=== PATIENT | female | born 1945 | race Asian ===

== ENCOUNTER 2017-12-12 11:53 | Emergency (ER) | payer MEDICARE, OTHER, SELFPAY ==
[2017-12-12] VITALS (7 sets, daily range): BP systolic 109–192; BP diastolic 66–90; PULSE 78–107; RESP 15–21; TEMP 36.9; O2SAT 96–100
--- NOTE | 2017-12-12 12:05 | DI.RAD.S_ITS ---
PROCEDURE: XR CHEST 1V INDICATIONS: Chest pain TECHNIQUE: One view of the chest was acquired. COMPARISON: [facility], , CHEST 1 VIEW, 10/06/2016, 11:52. FINDINGS: Surgical changes and devices: There is surgical fusion in the lower cervical spine. Cholecystectomy clips are noted. Lungs and pleura: No pleural effusions or pneumothorax. Lungs are clear. Mediastinum: Mediastinal contours appear normal. Heart size is normal. Bones and chest wall: No suspicious bony lesions. Overlying soft tissues appear unremarkable. IMPRESSION: No acute cardiopulmonary disease. Dictated by: Tyrell Fletcher M.D. on 12/12/2017 at 12:26 Approved by: Tyrell Fletcher M.D. on 12/12/2017 at 12:27
--- NOTE | 2017-12-12 12:20 | ED_ITS ---
HPI - Chest Pain General Chief Complaint: Chest Pain Stated Complaint: PAIN/NUMB LEFT SHOULDER X7 DAYS, CHEST PAIN,SOB, Time Seen by Provider: 12/12/17 12:05 Source: patient Mode of arrival: ambulatory Limitations: no limitations History of Present Illness HPI narrative: 72-year-old female with a history of CVA and MD x2 presents with 9 days of left shoulder pain. There is no history of injury. She was seen at [facility] about 1 week ago and had a negative cardiac workup. She was given tramadol to help with what appeared to be musculoskeletal pain and advised to follow up. She has been unable to get in with her primary care provider due to the new computer system. She complains of increasing pain in the right shoulder, worse with movement, and improved by sitting leaning to the right side. She also notes that the arm appears to be somewhat weaker than usual. Her previous stroke affected the right side of her body but has nearly recovered. She denies fevers or chills. She does admit to diaphoresis/clammy skin, but denies shortness of breath. She admits to some mild nausea, which is worse when she takes the tramadol. Because of this and the vomiting she has experienced she does not take tramadol anymore. She states this pain is more than she has ever had. Quality: sharp Pain radiation: LUE Exacerbating factors: movement Related Data Home Medications Medication Instructions Recorded Confirmed Cinnamon 1 cap PO QDAY 12/12/17 12/12/17 albuterol sulfate [Proventil HFA] 2 puff INH Q4HP PRN 12/12/17 12/12/17 alprazolam 0.25 mg PO TID 12/12/17 12/12/17 alprazolam 0.5 mg PO QHS 12/12/17 12/12/17 metformin 1,000 mg PO QPM 12/12/17 12/12/17 metformin 1,500 mg PO QAM 12/12/17 12/12/17 Previous Rx's Medication Instructions Recorded metoprolol tartrate 50 mg PO BID #180 tab 10/26/16 cholecalciferol (vitamin D3) 10,000 tab PO QWEEK #8 tab 11/10/16 cyanocobalamin (vitamin B-12) 2,000 mcg PO Q DAY PRN PRN #180 tab 11/14/16 diclofenac sodium [Voltaren] 3 abi TOPICAL TID #500 gm 11/14/16 omeprazole 40 mg PO BID #180 tab 02/12/17 amitriptyline 75 mg PO HS #90 tab 02/16/17 lisinopril 2.5 mg PO QDAY #90 tab 07/18/17 acetaminophen 650 mg PO Q8HP PRN #100 tab 08/21/17 clopidogrel [Plavix] 75 mg PO QDAY #90 tab 10/01/17 atorvastatin [Lipitor] 80 mg PO HS #90 tab 10/15/17 zolpidem [Ambien] 10 mg PO HS #90 tab 11/05/17 cyclobenzaprine 5 mg PO Q8H PRN #20 tab 12/12/17 ondansetron [Zofran ODT] 4 mg PO Q6H PRN #14 tab 12/12/17 Allergies Allergy/AdvReac Type Severity Reaction Status Date / Time hydrocodone [From VICODIN] Allergy Unknown Verified 12/12/17 13:43 codeine AdvReac Mild GI UPSET Verified 12/12/17 13:43 rifampin AdvReac Mild SICK, N/A Verified 12/12/17 13:42 Review of Systems Review of Systems All systems reviewed & are unremarkable except as noted in HPI and below Constitutional Denies chills, Denies fatigue, Denies fever(s), Denies headache(s), Denies lethargy and Reports weakness Eyes Denies change in vision, Denies eye discharge, Denies irritation and Denies loss of vision ENT Ears, Nose, Mouth, and Throat: Denies change in voice, Denies dizziness, Denies headache(s), Denies neck pain, Denies sore throat and Denies throat swelling Cardiovascular Reports as per HPI, Reports chest pain ( pain radiates to the chest intermittently, but not frequently), Reports diaphoresis, Denies syncope and Denies dyspnea Respiratory Reports system reviewed and no additional complaints, except as docu, Denies dyspnea and Denies wheezing Gastrointestinal Gastrointestinal: Reports system reviewed and no additional complaints, except as docu Genitourinary Reports system reviewed and no additional complaints, except as docu Musculoskeletal Reports as per HPI, Denies back pain, Denies joint swelling, Reports muscle weakness ( due to pain), Denies neck pain, Denies numbness and Denies tingling Integumentary/Breasts Reports system reviewed and no additional complaints, except as docu Neurologic Reports system reviewed and no additional complaints, except as docu, Denies confusion, Denies dizziness, Denies syncope, Denies headache(s), Denies loss of vision, Denies numbness, Denies sensory deficit, Denies tingling, Denies tremor( s) and Reports weakness Psychiatric Denies confusion Endocrine Denies fatigue and Denies flushing Hematologic/Lymphatic Denies easy bruising Allergic/Immunologic Denies urticaria, Denies throat swelling and Denies wheezing Exam Const General: cooperative, well developed, in distress ( mild) and other ( leaning to the right side) Nutritional Appearance: well nourished Orientation: alert, awake, oriented x3 and not confused [facility] Head: normocephalic and atraumatic Ears: external ears normal and TM's normal bilaterally Nose: external nose normal and No nasal discharge Face and sinus: sinuses nontender, face symmetric, no sinus tenderness and No dry mucous membranes Mouth: oral mucosae normal and moist mucous membranes Teeth and gingiva: dentition normal Throat: tonsils normal and uvula midline Eyes General: appearance normal, both eyes and all related structures Eyelids: eyelids normal Conjunctivae: conjunctivae normal Sclera: sclerae normal Pupils: PERRL EOM: EOM intact bilaterally Neck Neck: normal visual inspection, trachea midline, No lymphadenopathy, No midline deformity and No JVD Lymphatic: No lymphedema Other: negative Spurling's Chest Chest: normal inspection of the chest Resp Effort & Inspection: normal respiratory effort, able to speak in complete sentences, no respiratory distress and no use of accessory muscles Auscultation: clear to auscultation bilaterally, no rales, no rhonchi and no wheezes Cardio Rate: tachycardic Rhythm: regular rhythm Heart Sounds: no click, no gallops, no murmurs and no rubs Pulses: normal peripheral pulses GI Inspection: non-distended Palpation: soft, no hepatosplenomegaly, No guarding, No pulsatile mass and No tender Auscultation: normal bowel sounds Back/Spine/Pelvis Back: No CVA tenderness Cervical Spine: cervical ROM normal and No pain with cervical ROM Thoracic/Lumbar Spine: thoracic and lumbar spine normal to inspection Skin General: no rashes or lesions noted, No jaundice and No petechiae Neuro General: alert, oriented x3, gait normal and no focal motor deficits Cranial Nerves: CN's II-XI intact bilaterally Speech: speech normal Motor: strength 5/5 throughout Sensory Exam: no sensory deficits noted Extrem General: full ROM ( full but painful range of motion of left shoulder), no clubbing, cyanosis or edema and no pedal edema Left upper extremity: no joint enlargement and elbow/forearm Details: no unusual warmth, no ecchymosis and no crepitus Psych Appearance: well kempt Mental Status: mental status grossly normal Attitude: cooperative Thought Content: normal and suicidality Judgment: judgment good MDM - Chest Pain MDM Narrative Medical decision making narrative: EKG performed at 11:59 a.m. shows sinus rhythm with a rate of 95. No ST elevation or depression. No ischemia. 72-year-old female with a history of stroke and MD presents with left shoulder pain for 9 days. she has a significant intolerance to pain medications and the tramadol she was discharged with from previous ER visit cause significant nausea and vomiting, although it does relieve her pain. My differential for her shoulder pain included MRI, radiculopathy, stroke as she did mention some weakness, muscle strain, fracture, pneumothorax, among other things. Her EKG is completely normal as is her troponin after 9 days of constant pain. Her neuro exam is normal as well other than pain. I do not appreciate any new weakness on this side. X-ray of the chest and left shoulder show no acute abnormalities. Although her pain improved with Dilaudid she has developed nausea again which improved with Zofran and Reglan. I a.m. also consider rheumatoid as a potential cause but inflammatory/infectious markers were negative.As the tramadol helped her previously I gave her a prescription of Zofran and also muscle relaxer. her exam is most consistent with rhomboid muscle strain as there is focal tightness and tenseness of this muscle group isolated to the left side only. It is worse with motion and better with heat. I advised follow-up with her PCP later this week and consideration of physical therapy to help with her pain. Patient has a friend who is caring for her and helping her and she will stay with her and help her with follow-up. Return precautions given. Lab Data Result diagrams: 12/12/17 12:11 12/12/17 12:11 Lab Results 12/12/17 12/12/17 12/12/17 Range/Units 11:53 12:11 12:11 WBC 11.8 H (4.5-11.0) X10^3/uL RBC 5.01 (4.0-5.2) X10^6/uL Hgb 13.8 (12.0-16.0) g/dL Hct 41.5 (36-46) % MCV 82.9 (80-100) fL MCH 27.5 (26-34) PG MCHC 33.1 (30-36) % RDW 17.3 H (11.6-14.8) % Plt Count 375 (150-400) X10^3/uL Neut % (Auto) 67.6 (50-75) % Lymph % (Auto) 19.5 L (25-40) % Aurora % (Auto) 8.6 (3-14) % Eos % (Auto) 3.7 (2-4) % Baso % (Auto) 0.6 (0-2) % Neut # (Auto) 8000 H (5619-0640) /uL ESR 14 (0-20) MM/HR PT 10.0 L (10.1-12.7) SECONDS INR 0.9 (0.9-1.3) APTT 33 (26.4-36.2) SECONDS Sodium (137-145) mmol/L Potassium (3.4-5.1) mmol/L Chloride (98-107) mmol/L Carbon Dioxide (22-32) mmol/L BUN (7-17) mg/dL Creatinine (0.52-1.04) mg/dL Estimated GFR (>60) mL/min BUN/Creatinine Ratio (6-22) Glucose (80-110) mg/dL Calcium (8.4-10.2) mg/dL Total Bilirubin (0.2-1.3) mg/dL AST (14-36) IU/L ALT (9-52) IU/L Alkaline Phosphatase (38-126) U/L Total Creatine Kinase (30-135) U/L Troponin I (0.01-0.034) ng/mL B-Natriuretic Peptide < 100.0 (<100) Total Protein (6.3-8.2) g/dL Albumin (3.5-5.0) g/dL Globulin (1.7-4.1) g/dL Albumin/Globulin Ratio (1.0-2.8) Lipase (23-300) U/L 12/12/17 Range/Units 12:11 WBC (4.5-11.0) X10^3/uL RBC (4.0-5.2) X10^6/uL Hgb (12.0-16.0) g/dL Hct (36-46) % MCV (80-100) fL MCH (26-34) PG MCHC (30-36) % RDW (11.6-14.8) % Plt Count (150-400) X10^3/uL Neut % (Auto) (50-75) % Lymph % (Auto) (25-40) % Aurora % (Auto) (3-14) % Eos % (Auto) (2-4) % Baso % (Auto) (0-2) % Neut # (Auto) (1000-9433) /uL ESR (0-20) MM/HR PT (10.1-12.7) SECONDS INR (0.9-1.3) APTT (26.4-36.2) SECONDS Sodium 135 L (137-145) mmol/L Potassium 4.9 (3.4-5.1) mmol/L Chloride 96.0 L (98-107) mmol/L Carbon Dioxide 22.0 (22-32) mmol/L BUN 17.0 (7-17) mg/dL Creatinine 0.80 (0.52-1.04) mg/dL Estimated GFR > 60.0 (>60) mL/min BUN/Creatinine Ratio 21.3 (6-22) Glucose 172 H (80-110) mg/dL Calcium 9.2 (8.4-10.2) mg/dL Total Bilirubin 0.6 (0.2-1.3) mg/dL AST 27 (14-36) IU/L ALT 24 (9-52) IU/L Alkaline Phosphatase 91 (38-126) U/L Total Creatine Kinase 38 (30-135) U/L Troponin I < 0.012 (0.01-0.034) ng/mL B-Natriuretic Peptide (<100) Total Protein 7.9 (6.3-8.2) g/dL Albumin 4.5 (3.5-5.0) g/dL Globulin 3.4 (1.7-4.1) g/dL Albumin/Globulin Ratio 1.3 (1.0-2.8) Lipase 108 (23-300) U/L Imaging Data Chest x-ray: Radiologist's impression: PROCEDURE: XR CHEST 1V INDICATIONS: Chest pain TECHNIQUE: One view of the chest was acquired. COMPARISON: [facility], CHEST 1 VIEW, 10/06/2016, 11:52. FINDINGS: Surgical changes and devices: There is surgical fusion in the lower cervical spine. Cholecystectomy clips are noted. Lungs and pleura: No pleural effusions or pneumothorax. Lungs are clear. Mediastinum: Mediastinal contours appear normal. Heart size is normal. Bones and chest wall: No suspicious bony lesions. Overlying soft tissues appear unremarkable. IMPRESSION: No acute cardiopulmonary disease. Dictated by: Tyrell Fletcher M.D. on 12/12/2017 at 12:26 Approved by: Tyrell Fletcher M.D. on 12/12/2017 at 12:27 shoulder: Radiologist's impression: PROCEDURE: XR SHOULDER LT MIN 2V INDICATIONS: left shoulder pain TECHNIQUE: 3 views of the shoulder were acquired. COMPARISON: None. FINDINGS: Bones: No fractures or dislocations. No suspicious bony lesions. Visualized ribs appear intact. Mild degenerative changes of the glenohumeral and acromioclavicular joints are present. There are post surgical changes of the lower cervical spine noted, likely present at the C7-T1 junction. This is not well evaluated on this exam. Soft tissues: No suspicious soft tissue calcifications. IMPRESSION: Mild degenerative changes of the left shoulder joint. No fractures. Dictated by: Juan Manuel Flores M.D. on 12/12/2017 at 12:12 Approved by: Juan Manuel Flores M.D. on 12/12/2017 at 12:13 Discharge Plan Departure Patient Disposition: Home, Self-Care Clinical Impression: Rhomboid muscle strain, Nausea, Acute pain of left shoulder Instructions: DI for Muscle Strain, DI for Shoulder Pain Activity Restrictions/Additional Instructions: Thank you for trusting this with your care today. There were no dangerous causes for your shoulder pain found after thorough evaluation. I see no evidence of stroke, heart attack, infection, fracture, rheumatoid flare, pinched nerve in the neck or other dangerous findings. It appears that your rhomboid muscle is the source of your pain. Please continue to use your tramadol as needed for pain, firstt taking a Zofran tablet to prevent nausea. You can also take cyclobenzaprine for muscle spasm. Please be aware this medication can cause sleepiness. Follow up with your primary care provider within 1 week for re-evaluation. Return to ER for new or worsening symptoms. Prescriptions: New ondansetron [Zofran ODT] 4 mg tablet,disintegrating 4 mg PO Q6H PRN (Reason: nausea and vomiting) Qty: 14 RF: 0 cyclobenzaprine 5 mg tablet 5 mg PO Q8H PRN (Reason: muscle spasm) Qty: 20 RF: 0 No Action metoprolol tartrate 50 MG tablet 50 mg PO BID Qty: 180 RF: 3 cholecalciferol (vitamin D3) 10,000 UNIT tablet 10,000 tab PO QWEEK Qty: 8 RF: 0 cyanocobalamin (vitamin B-12) 1,000 MCG tablet extended release 2,000 mcg PO Q DAY PRN PRNQty: 180 RF: 3 diclofenac sodium [Voltaren] 1 % gel 3 abi Topical TID Qty: 500 RF: 2 omeprazole 20 MG tablet,delayed release (DR/EC) 40 mg PO BID Qty: 180 RF: 11 amitriptyline 75 MG tablet 75 mg PO HS Qty: 90 RF: 3 lisinopril 2.5 MG tablet 2.5 mg PO QDAY Qty: 90 RF: 3 acetaminophen 650 MG tablet extended release 650 mg PO Q8HP PRNQty: 100 RF: 5 clopidogrel [Plavix] 75 MG tablet 75 mg PO QDAY Qty: 90 RF: 1 atorvastatin [Lipitor] 80 MG tablet 80 mg PO HS Qty: 90 RF: 3 zolpidem [Ambien] 10 MG tablet 10 mg PO HS Qty: 90 RF: 0 albuterol sulfate [Proventil HFA] 90 MCG/PUFF HFA aerosol inhaler 2 puff INH Q4HP PRN (Reason: Shortness Of Breath) RF: 0 metformin 500 mg Tablet 1,000 mg PO QPM RF: 0 metformin 500 mg Tablet 1,500 mg PO QAM RF: 0 alprazolam 0.25 MG tablet 0.25 mg PO TID RF: 0 alprazolam 0.25 mg Tablet 0.5 mg PO QHS RF: 0 Cinnamon capsule 1 cap PO QDAY RF: 0 Referrals: José Miguel Nunez MD [Primary Care Provider] -
[2017-12-12 12:28] LABS: Add Manual Diff / Slide Review NO; Basophils Percent Auto 0.6 % (0-2); Eosinophils Percent Auto 3.7 % (2-4); Hematocrit 41.5 % (36-46); Hemoglobin 13.8 g/dL (12.0-16.0); Lymphocytes Percent Auto 19.5 % (25-40); Mean Corpuscular HGB Conc 33.1 % (30-36); Mean Corpuscular Hemoglobin 27.5 PG (26-34); Mean Corpuscular Volume 82.9 fL (80-100); Monocytes Percent Auto 8.6 % (3-14); Neutrophils Absolute Auto 8000 /uL (3000-5900); Neutrophils Percent Auto 67.6 % (50-75); Platelet Count 375 X10^3/uL (150-400); Red Blood Cell Count 5.01 X10^6/uL (4.0-5.2); Red Cell Distribution Width 17.3 % (11.6-14.8); White Blood Cell Count 11.8 X10^3/uL (4.5-11.0)
[2017-12-12 12:30] LABS: INR 0.9 (0.9-1.3)
[2017-12-12 12:32] LABS: PTT Partial Thromboplastin Tim 33 SECONDS (26.4-36.2)
[2017-12-12 12:36] LABS: Alanine Aminotransferase 24 IU/L (9-52); Albumin 4.5 g/dL (3.5-5.0); Albumin Globulin Ratio 1.3 (1.0-2.8); Alkaline Phosphatase 91 U/L (38-126); Aspartate Aminotransferase 27 IU/L (14-36); BUN Creatinine Ratio 21.3 (6-22); Bilirubin Total 0.6 mg/dL (0.2-1.3); Calcium 9.2 mg/dL (8.4-10.2); Creatine Kinase 38 U/L (30-135); Estimated Glomerular Filt Rate > 60.0 mL/min (>60); Globulin 3.4 g/dL (1.7-4.1); Glucose 172 mg/dL (80-110); Lipase 108 U/L (23-300); Potassium 4.9 mmol/L (3.4-5.1); Sodium 135 mmol/L (137-145); Total Protein 7.9 g/dL (6.3-8.2)
[2017-12-12 12:38] LABS: HEMOLYSIS 80 (0-50)
--- NOTE | 2017-12-12 12:44 | DI.RAD.S_ITS ---
PROCEDURE: XR SHOULDER LT MIN 2V INDICATIONS: left shoulder pain TECHNIQUE: 3 views of the shoulder were acquired. COMPARISON: None. FINDINGS: Bones: No fractures or dislocations. No suspicious bony lesions. Visualized ribs appear intact. Mild degenerative changes of the glenohumeral and acromioclavicular joints are present. There are post surgical changes of the lower cervical spine noted, likely present at the C7-T1 junction. This is not well evaluated on this exam. Soft tissues: No suspicious soft tissue calcifications. IMPRESSION: Mild degenerative changes of the left shoulder joint. No fractures. Dictated by: Juan Manuel Flores M.D. on 12/12/2017 at 12:12 Approved by: Juan Manuel Flores M.D. on 12/12/2017 at 12:13
[2017-12-12 12:48] LABS: Troponin I < 0.012 ng/mL (0.01-0.034)
[2017-12-12 13:25] LABS: Erythrocyte Sedimentation Rate 14 MM/HR (0-20)
[2017-12-12 13:44] LABS: B Type Natriuretic Peptide < 100.0 (<100)
[2017-12-12] MEDS: HYDROMORPHONE 0.5 MG SYRINGE IV (13:51)
[2017-12-12] MEDS: ONDANSETRON 4 MG/2 ML VIAL IV (13:52)
--- NOTE | 2017-12-12 14:43 | PC.NURSE ---
Patient reports feeling flushed, nauseated and a little dizzy after the dilaudid. Not actively vomiting. Tolerating small sips of water.
[2017-12-12] MEDS: METOCLOPRAMIDE 10 MG/2 ML INJ IV (15:50)
[2017-12-12] MEDS: LABETALOL 20 MG/4 ML SYRINGE 5 MG IV (16:21)
[2017-12-12] MEDS: ONDANSETRON 4 MG/2 ML INJ IV (16:34)
[2017-12-13 01:37] LABS: C-Reactive Protein Quant < 0.5 mg/dL (<1.0)
== END 2017-12-12 16:52 | disposition home or self-care (01) ==
PROVIDERS: Emergency Medicine; Emergency Provider Emergency Medicine; Family Provider Family Medicine; PCP Family Medicine
DX: S29.019A Strain of muscle and tendon of unspecified wall of thorax, initial encounter (principal); R11.0 Nausea; M25.512 Pain in left shoulder; R07.89 Other chest pain
CPT/HCPCS: 36000; 36591; 71045; 73030; 80053; 82550; 82553; 83690; 83880; 84484; 85025; 85610; 85651; 85730; 86140; 93005; 93010; 93041; 96374; 96375; 96376; 99283; 99285; J1170; J2405; J2765

== ENCOUNTER → 2017-12-27 11:00 | Outpatient (CLI) | payer MEDICARE, OTHER, SELFPAY ==
[2017-12-27 12:25] LABS: Hemoglobin A1C% w Est Avg Glu 7.3 % (4.0-6.0)
[2017-12-27 12:37] LABS: BUN Creatinine Ratio 18.8 (6-22); Calcium 9.4 mg/dL (8.4-10.2); Estimated Glomerular Filt Rate > 60.0 mL/min (>60); Glucose 203 mg/dL (80-110); HEMOLYSIS < 15 (0-50); Potassium 5.3 mmol/L (3.4-5.1); Sodium 136 mmol/L (137-145)
[2017-12-27 12:50] LABS: Free T4, Direct Thyroxine 0.93 ng/dL (0.78-2.19)
[2017-12-27 13:04] LABS: Thyroid Stimulating Hormone 0.07 uIU/mL (0.47-4.68)
== END ==
PROVIDERS: PCP Family Medicine; Visit Provider Family Medicine
DX: E11.9 Type 2 diabetes mellitus without complications (principal); E05.90 Thyrotoxicosis, unspecified without thyrotoxic crisis or storm
CPT/HCPCS: 36415; 80048; 83036; 84439; 84443

== ENCOUNTER → 2017-12-31 07:17 | Outpatient (CLI) | payer MEDICARE, OTHER, SELFPAY ==
--- NOTE | 2017-12-31 07:18 | DI.MRI.S_ITS ---
PROCEDURE: MR CERVICAL SPINE WO CON INDICATIONS: c-spine impingment with left radiculopathy TECHNIQUE: Noncontrast sagittal T1 spin echo and T2 fast spin echo, sagittal STIR, foraminal oblique sagittal T2 fast spin echo, and axial gradient echo or T2 fast spin echo through the cervical spine. COMPARISON: [facility], , C-SPINE WITHOUT CONTRAST, 11/01/2009, 12:07. FINDINGS: Image quality: Excellent. Alignment and Curvature: Interval since the prior exam, there has been anterior fusion at C6-7. There is trace anterolisthesis of C3 on C4, C7 on T1, trace retrolisthesis of C4 on C5 and C5 on C6. Bone Marrow: Marrow demonstrates normal overall signal. Spinal Cord: Visualized spinal cord has normal size and signal. No cerebellar tonsillar herniation. Paraspinous Soft Tissues: No paravertebral masses. Prevertebral soft tissues are normal in thickness. Discs: Moderate multilevel disc desiccation is present most prominent in the mid cervical spine. C2-C3: No disc bulge, spinal stenosis or foraminal narrowing. No interval change. C3-C4: Mild disc bulge with mild flattening of the anterior thecal sac. No foraminal narrowing. No interval change. C4-C5: Mild disc bulge with moderate spinal stenosis, progressive compared to prior exam. There is moderate bilateral foraminal narrowing with uncovertebral hypertrophy as well as a right facet joint cyst, progressive compared to prior exam. C5-C6: Disc bulge with moderate spinal stenosis as well as severe right and moderate left foraminal narrowing and uncovertebral hypertrophy. Interval progression is noted. C6-C7: Postsurgical changes are present. There is no spinal stenosis. No foraminal narrowing. Spinal stenosis is improved compared to prior exam. C7-T1: Postsurgical changes are present. There is what appears to be a prominent disc extrusion in the left posterior paracentral position at the level of the lateral recess/proximal left neural foramina. There is complete compromise of the left lateral recess and proximal foramina. There is an overall appearance of mild spinal stenosis. IMPRESSION: 1. Mild progression of degenerative changes as above. 2. Prominent left lateral recess/proximal left neural foramina extrusion at C6-7 with compromise of the recess and foramina as above. Dictated by: Annalisa Villanueva M.D. on 12/31/2017 at 9:24 Approved by: Annalisa Villanueva M.D. on 12/31/2017 at 9:56
== END ==
PROVIDERS: Family Provider Family Medicine; PCP Family Medicine; Visit Provider Family Medicine
DX: M50.30 Other cervical disc degeneration, unspecified cervical region (principal); M50.20 Other cervical disc displacement, unspecified cervical region
CPT/HCPCS: 72141

== ENCOUNTER → 2018-03-01 09:42 | Outpatient (CLI) | payer MEDICARE, OTHER, SELFPAY ==
[2018-03-01 10:51] LABS: Hemoglobin A1C% w Est Avg Glu 7.9 % (4.0-6.0)
[2018-03-01 11:02] LABS: BUN Creatinine Ratio 17.5 (6-22); Blood Urea Nitrogen 14 mg/dL (7-17); Calcium 9.3 mg/dL (8.4-10.2); Carbon Dioxide 26 mmol/L (22-32); Chloride 97 mmol/L (98-107); Estimated Glomerular Filt Rate > 60.0 mL/min (>60); Glucose 161 mg/dL (80-110); HEMOLYSIS 36 (0-50); Potassium 4.3 mmol/L (3.4-5.1); Sodium 135 mmol/L (137-145)
[2018-03-01 11:32] LABS: Thyroid Stimulating Hormone < 0.02 uIU/mL (0.47-4.68)
== END ==
PROVIDERS: Family Provider Family Medicine; PCP Family Medicine; Visit Provider Family Medicine
DX: E05.90 Thyrotoxicosis, unspecified without thyrotoxic crisis or storm (principal)
CPT/HCPCS: 36415; 80048; 83036; 84443

== ENCOUNTER 2018-03-27 09:12 | Outpatient (CLI) | payer MEDICARE, OTHER, SELFPAY ==
[2018-03-27] VITALS (11 sets, daily range): BP systolic 135–174; BP diastolic 59–88; PULSE 75–84; RESP 14–20; TEMP 36.3; O2SAT 94–100
--- NOTE | 2018-03-27 09:14 | DI.RAD.S_ITS ---
PROCEDURE: PAIN C/T INTERLAMINAR INJECT INDICATIONS: C7-T1 HNP with left upper extremity radicular FINDINGS: Fluoroscopic spot filming was performed to verify placement of spinal needles at the dorsal aspect of the low cervical spine area, approximately C7-T1 level(s), as labeled on the films. Appropriate location(s) of the needle tip(s) was confirmed by injection of iodinated contrast. IMPRESSION: Successful dorsal low cervical spine region near the C7-T1 level localization for interlaminar epidural injection. Dictated by: Jericho Hughes M.D. on 03/27/2018 at 13:34 Approved by: Jericho Hughes M.D. on 03/27/2018 at 13:34
--- NOTE | 2018-03-27 10:22 | PM.PROC.1 ---
Procedures Date/Time Date of procedure: 03/27/18 Time of procedure: 10:23 General Procedure description: PREOP DIAGNOSIS 1. CERVICAL STENOSIS, 2. CERVICAL HNP WITH UPPER EXTREMITY RADICULAR FEATURES, POST OP DIAGNOSIS 1. CERVICAL STENOSIS, 2. CERVICAL HNP WITH UPPER EXTREMITY RADICULAR FEATURES, PROCEDURES 1. FLUORSCOPICALLY GUIDED CONTRAST CONTROLLED INTERLAMINAR EPIDURAL STEROID INJECTION - C6/7 TL LEIGHA PHYSICIAN: Jose Rizo, DO INDICATIONS Erica is referred by Dr. Nunez for treatment of Cervical HNP with Upper Extremity Paresthesias. FINDINGS Cervical Stenosis due to disc deterioration and nerve root irritation and nerve root irritation DESCRIPTION OF PROCEDURE Fluoroscopically guided, contrast-controlled C6/7 translaminar epidural steroid injection with conscious sedation. Following denial of allergy and review of potential side effects and complications, including, but not necessarily limited to, infection, allergic reaction, local tissue breakdown, temporary as well as permanent nerve injury, stroke, paralysis, and possible , the patient indicated that patient understood and agreed to proceed. An informed consent document was signed by the patient, witnessed by a nurse, and placed in the patient's chart. Additionally, other treatment options including modalities, medications, and physical therapy were reviewed with the patient. After review of previous anaesthesic history and IV conscious sedation the patient was deemed safe to proceed with todays procedure with IV conscious sedation as ASA class II designation. Safety time-out was performed to confirm patient ID, procedure to be performed and site of procedure. IV sedation was accomplished with a combination of 3mg of Versed administered by the RN after DO order, titrated to patient comfort during the course of the procedure while the patient remained responsive to all verbal commands. In the prone position, following sterile prep and drape of the cervical region, the C6/7 translaminar space was identified fluoroscopically. The skin was anesthetized via a 25-gauge 1.5-inch needle with 1% lidocaine solution. At this point, a 25-gauge, 2.5-inch short bevel spinal needle was atraumatically introduced and advanced under fluoroscopic guidance into epidural space at the C6/7 translaminar space. Depth was confirmed on lateral view. Radiological data, including multiple fluoroscopic views of the cervical spine, reveal a spinal needle at the C6/7 translaminar space. Lateral views then show placement of the needle in the epidural space. Subsequent views show contrast material flowing superiorly and inferiorly in the epidural space. DSA fluoroscopy with live contrast injection, once again, confirmed no vascular or intrathecal uptake. At this point, using loss of resistance technique with saline and air, the epidural space was entered. Following negative aspiration, injection of approximately 1.5 cc of [id number]-[id number] with live fluoroscopy in the AP view confirmed epidural flow in the epidural space without vascular or intrathecal uptake observed. Subsequently, a test dose of 1 cc of 1% lidocaine solution was injected and patient was observed for two minutes without signs or symptoms of complications, including abdominal pain, shortness of breath, bilateral upper or lower extremity weakness, nausea and vomiting, prior to steroid injection. At this point, 3 cc or 30 mg of dexamethasone was then injected without incident. The patient tolerated the procedure well without signs or symptoms of complications prior to being transferred to the recovery area for further monitoring, The patient was then transferred to the recovery area where they were observed for an appropriate period of time after the injection. The patient reported a VAS score of 6 prior to the procedure and a post-procedure VAS of 0. Total Fluoroscopy Time: 37.0 seconds Total Conscious Time: 24min POST OP INSTRUCTIONS The patient was provided a Pain Log to continue to record their response to the target-specific procedure prior to follow-up visit with the referring provider. Additionally, specific post-injection care instructions and a contact number to our office were provided if concerns arise regarding possible complications associated with the procedure are suspected. Jose Rizo, Complications: none
[2018-03-27] MEDS: LIDOCAINE 1% 20 ML INJ 5 ML INJ (10:50)
[2018-03-27] MEDS: IOPAMIDOL 15 ML VIAL 3 ML INJ (10:50)
[2018-03-27] MEDS: MIDAZOLAM 5 MG/5 ML VIAL IV (10:51)
[2018-03-27] MEDS: DEXAMETHASONE 10 MG/ML VIAL 30 MG INJ (10:51)
--- NOTE | 2018-03-27 17:38 | PC.NURSE ---
Called to remind pt she left her pain log here and She reports she is doing great. Her symptoms are weakness so she will keep track of her strength and let Dr. Rizo know how she did on her follow up.
== END 2018-03-27 11:31 ==
LOC: RAD 09:13
PROVIDERS: Family Provider Family Medicine; PCP Family Medicine; Visit Provider Physical Medicine & Rehabilitation
DX: M48.02 Spinal stenosis, cervical region (principal); M54.12 Radiculopathy, cervical region
CPT/HCPCS: 62321; 99152; J1100; J2250

== ENCOUNTER 2018-04-30 10:21 | Outpatient (CLI) | payer MEDICARE, OTHER, SELFPAY ==
[2018-04-30] VITALS (13 sets, daily range): BP systolic 105–174; BP diastolic 67–99; PULSE 74–84; RESP 16–20; TEMP 36.1; O2SAT 95–98
--- NOTE | 2018-04-30 10:23 | DI.RAD.S_ITS ---
PROCEDURE: PAIN C/T INTERLAMINAR INJECT INDICATIONS: RADICULOPATHY FINDINGS: Fluoroscopic spot filming was performed to verify placement of spinal needles at the posterior C7-T1 midline level(s), as labeled on the films. Appropriate location(s) of the needle tip(s) was confirmed by injection of iodinated contrast. IMPRESSION: Successful translaminar epidural needle tip localization for steroid injection. Dictated by: Jericho Hughes M.D. on 04/30/2018 at 16:16 Approved by: Jericho Hughes M.D. on 04/30/2018 at 16:16
[2018-04-30] MEDS: MIDAZOLAM 5 MG/5 ML VIAL IV (11:23)
[2018-04-30] MEDS: LIDOCAINE 1% 20 ML INJ 5 ML INJ (11:25)
[2018-04-30] MEDS: DEXAMETHASONE 10 MG/ML VIAL 30 MG INJ (11:25)
[2018-04-30] MEDS: IOPAMIDOL 15 ML VIAL 3 ML INJ (11:25)
--- NOTE | 2018-04-30 11:33 | PM.PROC.1 ---
Procedures Date/Time Date of procedure: 04/30/18 Time of procedure: 11:33 General Procedure description: PREOP DIAGNOSIS 1. CERVICAL STENOSIS, 2. CERVICAL HNP WITH UPPER EXTREMITY RADICULAR FEATURES, POST OP DIAGNOSIS 1. CERVICAL STENOSIS, 2. CERVICAL HNP WITH UPPER EXTREMITY RADICULAR FEATURES, PROCEDURES 1. FLUORSCOPICALLY GUIDED CONTRAST CONTROLLED INTERLAMINAR EPIDURAL STEROID INJECTION - C7/T1 TL LEIGHA, PHYSICIAN: Jose Rizo DO INDICATIONS: Aresenia is referred by for treatment of Cervical Stenosis. FINDINGS Cervical Stenosis due to disc deterioration and nerve root irritation and nerve root irritation DESCRIPTION OF PROCEDURE Fluoroscopically guided, contrast-controlled C7/T1 translaminar epidural steroid injection with conscious sedation. Following denial of allergy and review of potential side effects and complications, including, but not necessarily limited to, infection, allergic reaction, local tissue breakdown, temporary as well as permanent nerve injury, stroke, paralysis, and possible , the patient indicated that patient understood and agreed to proceed. An informed consent document was signed by the patient, witnessed by a nurse, and placed in the patient's chart. Additionally, other treatment options including modalities, medications, and physical therapy were reviewed with the patient. After review of previous anaesthesic history and IV conscious sedation the patient was deemed safe to proceed with todays procedure with IV conscious sedation as ASA class II designation. Safety time-out was performed to confirm patient ID, procedure to be performed and site of procedure. IV sedation was accomplished with a combination of 2mg of Versed administered by the RN after DO order, titrated to patient comfort during the course of the procedure while the patient remained responsive to all verbal commands. In the prone position, following sterile prep and drape of the cervical region, the C7/T1 translaminar space was identified fluoroscopically. The skin was anesthetized via a 25-gauge 1.5-inch needle with 1% lidocaine solution. At this point, a 25-gauge, 2.5-inch short bevel spinal needle was atraumatically introduced and advanced under fluoroscopic guidance into epidural space at the C7/T1 translaminar space. Depth was confirmed on lateral view. Radiological data, including multiple fluoroscopic views of the cervical spine, reveal a spinal needle at the C7/T1 translaminar space. Lateral views then show placement of the needle in the epidural space. Subsequent views show contrast material flowing superiorly and inferiorly in the epidural space. DSA fluoroscopy with live contrast injection, once again, confirmed no vascular or intrathecal uptake. At this point, using loss of resistance technique with saline and air, the epidural space was entered. Following negative aspiration, injection of approximately 1.5 cc of Isovue-200 with live fluoroscopy in the AP view confirmed epidural flow in the epidural space without vascular or intrathecal uptake observed. Subsequently, a test dose of 1 cc of 1% lidocaine solution was injected and patient was observed for two minutes without signs or symptoms of complications, including abdominal pain, shortness of breath, bilateral upper or lower extremity weakness, nausea and vomiting, prior to steroid injection. At this point, 3 cc or 30 mg of dexamethasone was then injected without incident. The patient tolerated the procedure well without signs or symptoms of complications prior to transfer to the recovery area for further monitoring The patient was then transferred to the recovery area where they were observed for an appropriate period of time after the injection. The patient reported a VAS score of 6 prior to the procedure and a post-procedure VAS of 0. Total Fluoroscopy Time: 23.2 seconds Total Conscious Sedation Time: 24min POST OP INSTRUCTIONS The patient was provided a Pain Log to continue to record their response to the target-specific procedure prior to follow-up visit with the referring provider. Additionally, specific post-injection care instructions and a contact number to our office were provided if concerns arise regarding possible complications associated with the procedure are suspected. Jose Rizo DO Complications: none
--- NOTE | 2018-05-01 12:53 | PC.NURSE ---
FOLLOW UP CALL MADE. PT DENIES QUESTIONS/CONCERNS BUT STATES PAIN IS SAME PRE-PROCEDURE. I EXPLAINED THAT PAIN MAY BE INCREASED TODAY DUE TO PROCEDURE BUT THAT IS SHOULD GET BETTER IN THE NEXT FEW DAYS. INSTRUCTED HER TO CALL CLINIC IF NO RELIEF IS NOTED IN NEAR FUTURE.
== END 2018-04-30 12:18 ==
LOC: RAD 10:22
PROVIDERS: Family Provider Family Medicine; PCP Family Medicine; Visit Provider Physical Medicine & Rehabilitation
DX: M50.13 Cervical disc disorder with radiculopathy, cervicothoracic region (principal); M48.02 Spinal stenosis, cervical region
CPT/HCPCS: 62321; 99152; J1100; J2250

== ENCOUNTER → 2018-05-09 09:32 | Outpatient (CLI) | payer MEDICARE, OTHER, SELFPAY ==
[2018-05-09 10:23] LABS: Microalbumi Creatinin Ratio Ur 10.9 ug/mg CR (<30); Microalbumin Urine Random < 0.6 mg/dL (0-1.6)
[2018-05-09 10:53] LABS: Hemoglobin A1C% w Est Avg Glu 7.1 % (4.0-6.0)
[2018-05-09 11:09] LABS: BUN Creatinine Ratio 13.8 (6-22); Blood Urea Nitrogen 11 mg/dL (7-17); Calcium 9.5 mg/dL (8.4-10.2); Carbon Dioxide 28 mmol/L (22-32); Chloride 100 mmol/L (98-107); Estimated Glomerular Filt Rate > 60.0 mL/min (>60); Glucose 130 mg/dL (80-110); HEMOLYSIS < 15 (0-50); Potassium 3.9 mmol/L (3.4-5.1); Sodium 141 mmol/L (137-145)
[2018-05-09 11:34] LABS: Thyroid Stimulating Hormone 1.67 uIU/mL (0.47-4.68)
== END ==
PROVIDERS: PCP Family Medicine; Visit Provider Family Medicine
DX: E05.90 Thyrotoxicosis, unspecified without thyrotoxic crisis or storm (principal); E11.9 Type 2 diabetes mellitus without complications
CPT/HCPCS: 36415; 80048; 82043; 82570; 83036; 84443

== ENCOUNTER → 2018-06-03 12:36 | Outpatient (CLI) | payer MEDICARE, OTHER, SELFPAY ==
[2018-06-03 14:19] LABS: Hemoglobin A1C% w Est Avg Glu 7.1 % (4.0-6.0)
[2018-06-03 15:43] LABS: Blood Urea Nitrogen 18 mg/dL (7-17); Calcium 9.7 mg/dL (8.4-10.2); Carbon Dioxide 30 mmol/L (22-32); Chloride 95 mmol/L (98-107); Estimated Glomerular Filt Rate > 60.0 mL/min (>60); Glucose 131 mg/dL (80-110); HEMOLYSIS < 15 (0-50); Potassium 3.9 mmol/L (3.4-5.1); Sodium 141 mmol/L (137-145)
== END ==
PROVIDERS: PCP Family Medicine; Visit Provider Family Medicine
DX: E05.90 Thyrotoxicosis, unspecified without thyrotoxic crisis or storm (principal)
CPT/HCPCS: 36415; 80048; 83036; 84443

== ENCOUNTER 2018-06-21 10:21 | Inpatient (IN) | payer MEDICARE, OTHER, SELFPAY ==
[2018-06-17 12:56] VITALS: BMI 26.3
[2018-06-21] VITALS (21 sets, daily range): BP systolic 125–198; BP diastolic 51–89; PULSE 67–85; RESP 8–16; TEMP 36–36.8; O2SAT 92–100; BMI 26.3
--- NOTE | 2018-06-21 | DI.RAD.S_ITS ---
PROCEDURE: XR CERVICAL SPINE 2V OR 3V INDICATIONS: C7-T1 FUSION TECHNIQUE: Fluoroscopic images were obtained during an operative procedure and submitted for interpretation following the completion of the procedure. COMPARISON: [facility], MR, C-SPINE WITHOUT CONTRAST, 11/01/2009, 12:07. [facility], MR, MR CERVICAL SPINE WO CON, 12/31/2017, 7:50. FINDINGS: These fluoroscopic images were performed for intraoperative localization. On these images, and anteriorly placed fixation device is seen at the presumed C7-T1 level. Please correlate with intraoperative findings. IMPRESSION: Normal intraoperative examination. Dictated by: Marcelo Antonio M.D. on 06/21/2018 at 14:24 Approved by: Marcelo Antonio M.D. on 06/21/2018 at 14:25
[2018-06-21] MEDS: LACTATED RINGERS 1,000 ML 100 ML IV (11:08)
--- NOTE | 2018-06-21 12:21 | PM.PREOP ---
Pre-operative Note Interval Note Pre-op Check: Yes History & Physical Reviewed by Physician and Yes Exam Performed Changes: No
--- NOTE | 2018-06-21 13:04 | PM.OP.1 ---
Operative Date/Time/Diagnoses Date of procedure: 06/21/18 Time of procedure: 14:50 Pre-op diagnosis: Cervical disc herniation Post-op diagnosis: same Procedure & Clinicians Procedure: C7-T1 anterior cervical diskectomy and fusion Use of cage Iliac crest bone graft aspirate Removal of old anterior cervical plate. Use of microscope Same procedure as scheduled: Yes Indications: [age] year old female with intractable pain from a cervical disc herniation. They had failed conservative management and requested operative intervention. Risks and benefits of surgery were discussed and appropriate consents were obtained. Surgeon: Hunter Pinon Computer Engineer: Yuli Donaldson Anesthesia Type: General Operative Notes Findings: none Closure Type: primary Specimen(s): none sent Implants & Drains: Geeta LDR NATE-C Applied: catheter Estimated Blood Loss (mL): 5 Procedure in detail: Patient was brought to the operating room and intubated on the table. A time-out was performed. Preoperative antibiotics were given. The neck was prepped and draped in the standard sterile fashion. Using a skin fold, we made a 3 cm oblique incision on the left side. We used Bovie to go through the platysma and then did a standard anterolateral blunt dissection down to the precervical fascia. Fascia was nicked and elevated up. A marker was placed and x-ray was taken for localization, although this was obvious below the previous plate. We then subperiosteally elevated up the longus colli muscles. We cleared off the old plate at C6-7 and removed it. Bone wax was placed in the screw holes as they were losing a fair amount. Self-retaining retractors were placed. [place] pins were placed at C7-T1. We then brought in the microscope. A scalpel used to perform an annulotomy. We then used a combination of pituitaries and curettes and Kerrison to perform a complete anterior diskectomy at C7-T1. We used the bur to take down the posterior osteophytes. We took down the PLL and used Kerrison to remove any posterior disc material and osteophytes. We removed a moderate size left-sided disc herniation. At the end we could from the nerve hook cephalad caudally and out the foramen and everything was opened. A small stab incision was made over the left anterior iliac crest. A Jamshidi needle was advanced down the pedicle and 2 mL of bone marrow was aspirated. We then used the trials. We then packed a 15 x 12 x 6 mm NATE-C cage with Osteocell bone graft and the iliac crest harvest. The cage was placed under fluoroscopic guidance. We then placed our two locking plates through the cage. The self-retaining retractors and [place] pins were removed and final x-rays taken. The wound was irrigated. There was no bleeding. The carotid was beating nicely. The platysma was closed. The superficial was closed. The skin was closed. A sterile dressing was placed. They were then extubated and brought to recovery room with no complications. Complications: none Condition: stable Disposition: PACU Plan for aftercare: Overnight admission.
[2018-06-21] MEDS: CEFAZOLIN 2 GM/100 ML FROZ.PIGGY IV ×2 (13:12→22:51)
--- NOTE | 2018-06-21 13:47 | SUR.OPER ---
Supine, head on gel donut. Arms padded with gel pads, tucked at sides, towel roll under shoulders. Safety belt at thigh. Legs uncrossed, pillow under knees.
[2018-06-21] MEDS: BUPIVACAINE 0.25% W/ EPI VIAL 50 ML INJ (14:17)
[2018-06-21] MEDS: SODIUM CHLORIDE 0.9% 1,000 ML, GENTAMICIN 80 MG IRR (14:22)
[2018-06-21] MEDS: THROMBIN (BOVINE) 5,000 UNIT VIAL 5000 UNIT TOP (14:22)
--- NOTE | 2018-06-21 15:20 | SUR.PHASEI ---
Mouth dry, ice provided, mouth moisturizer applied. Pt swallowing well. Neck collar in place. Neck drsg cdi. LT flank drsg partially saturated, Dr. Pinon notified, ok to change drsg per MD.
[2018-06-21] MEDS: LABETALOL 20 MG/4 ML SYRINGE 10 MG IV (15:28)
--- NOTE | 2018-06-21 15:37 | SUR.PHASEI ---
Dr. Diallo notified sbp 200. VVO for 10mg Labetalol IV. Pt medicted.
--- NOTE | 2018-06-21 15:46 | SUR.PHASEI ---
Small to moderate amt of bloody drainage to Lt flank drsg, margins marked. Bleeding seems to have stopped. Pt reported rt arm numb. + radial pulse x2, weak batter out and movement to bue. sensation intact to bue.
[2018-06-21] MEDS: fentaNYL 100 MCG/2 ML INJ 50 MCG IV ×2 (15:55→16:42)
--- NOTE | 2018-06-21 15:57 | SUR.PHASEI ---
Dr. Diallo notified bp 193/84, hr 71. No new orders.
--- NOTE | 2018-06-21 16:14 | SUR.PHASEI ---
Ice pack applied to Rt Arm.
--- NOTE | 2018-06-21 16:24 | SUR.PHASEI ---
Report called to JAMIL Dominguez.
--- NOTE | 2018-06-21 16:43 | SUR.PHASEI ---
Pt c/o 02/19 Lt arm pain, medicated with 25mcg Fentanyl. 2LNC applied for transport. Pt transferred to the floor. Report given to Angelica. VS stable. Neck drsg cdi, Lt flank drsg barely changed. Neck collar in place. Pt c/o pain to her lt hip/buttock area, pt turned, no skin issues per Angelica. Upper denture in room. IV saline locked.
[2018-06-21] MEDS: ONDANSETRON 4 MG ODT PO (17:13)
[2018-06-21] MEDS: LACTATED RINGERS 1,000 ML 125 ML IV (17:13)
[2018-06-21] MEDS: TRAMADOL 50 MG TABLET PO ×2 (17:20→18:51)
[2018-06-21] MEDS: INSULIN ASPART 100 UNIT/ML INSULN PEN SUBCUT (17:37)
[2018-06-21] MEDS: CELECOXIB 200 MG CAPSULE 400 MG PO (17:38)
[2018-06-21] MEDS: METFORMIN HCL 500 MG TABLET 1000 MG PO (17:39)
--- NOTE | 2018-06-21 17:51 | PC.NURSE ---
Pt to room 205 drowsy, but rousable. C/o left flank pain 10/10. Granddaughter is present and states pt does not tolerate narcotics. Suggested this screen writer give pt zofran and tramadol, 1/2 the dose. Pt confirms 25 mg tramadol is desired to manage pain. OTD zofran administered and 25 mg po tramadol. Pt states painful to swallow, but no difficulty noted. Soft collar in place. Set up for evening meal and granddaughter assists. Voided on bedpan as refuses to get out of bed @ this time.
--- NOTE | 2018-06-21 18:23 | RT ---
Patient and family instructed in Q1 hour W/A IS use with coughing. Patient coughing spontaneously with each deep breath. Strong, moist and nonprod. Patient has used and IS before.
[2018-06-21] MEDS: hydrOXYzine pamoate 25 MG CAPSULE PO (18:52)
[2018-06-21] MEDS: AMITRIPTYLINE 75 MG TABLET PO (22:04)
[2018-06-21] MEDS: ATORVASTATIN 20 MG TABLET 80 MG PO (22:04)
[2018-06-21] MEDS: DOCUSATE 100 MG CAPSULE PO (22:05)
[2018-06-21] MEDS: CELECOXIB 200 MG CAPSULE PO (22:05)
[2018-06-21] MEDS: SENNOSIDES 8.6 MG TABLET 17.2 MG PO (22:06)
[2018-06-21] MEDS: METOPROLOL IR 25 MG TABLET PO (22:06)
[2018-06-21] MEDS: GABAPENTIN 300 MG CAPSULE PO (22:06)
[2018-06-21] MEDS: ZOLPIDEM 5 MG TABLET 10 MG PO (22:08)
--- NOTE | 2018-06-21 23:36 | PC.NURSE ---
Pt reported earlier this evening no relief following 25 mg tramadol. Given additional 25 mg to equal 50 mg. Vistaril added. Pt now pain free @ end of shift assessment. Refuses ice to left flank graft site. Up to commode with MAGAZINE HAND for void and returned to bed. Head of bed remains elevated. Taking diet well. States unable to use cpap d/t soft collar. Pt remains on 1L nc with sats 94%.
[2018-06-22] MEDS: LACTATED RINGERS 1,000 ML 125 ML IV ×2 (01:48→12:22)
[2018-06-22 05:55] VITALS: BP 120/61; PULSE 83; RESP 15; TEMP 36.6; O2SAT 97
[2018-06-22] MEDS: CEFAZOLIN 2 GM/100 ML FROZ.PIGGY IV (06:26)
[2018-06-22] MEDS: PANTOPRAZOLE 40 MG TABLET PO (06:26)
[2018-06-22] MEDS: LEVOTHYROXINE 25 MCG TABLET PO (06:26)
[2018-06-22] MEDS: ONDANSETRON 4 MG ODT PO ×2 (06:32→11:10)
[2018-06-22] MEDS: TRAMADOL 50 MG TABLET PO ×2 (06:58→11:15)
--- NOTE | 2018-06-22 07:25 | PM.PNPO.1 ---
Subjective Date Patient Seen: 06/22/18 Time Patient Seen: 07:25 Interval history: Doing fairly well. Actually having a little more discomfort over the left iliac crest for the bone graft was aspirated. Doing okay with tramadol and Zofran. Exam Vital Signs (past 8 hours): - 06/21/18 23:52 06/22/18 05:55 Temperature 97.9 F 97.8 F Pulse Rate 82 83 Respiratory Rate 16 15 Blood Pressure 130/68 120/61 Pulse Oximetry 95 97 Oxygen Delivery Method Nasal Cannula Oxygen Flow Rate 1 Const Orientation: alert and oriented x3 Back/Spine/Pelvis Other: Cervical dressing clean dry intact. 5/5 motor both upper extremities except for 4/5 bilateral sweatband separator. Moderate drainage over her left iliac crest dressing Assessment & Plan Post-op Postoperative Procedures Operation Date: 06/21/18 12:45 Actual Procedures Side Surgeon p C7-T1 Anterior cervical discectomy & fusion w/bone graft instru. Hunter Pinon MD stable after ACDF. Will get her up with Physical therapy this morning and sent her home. Quality VTE Deep Vein Thrombosis/Pulmonary Embolism Present on Admission: No
[2018-06-22 07:27] VITALS: BP 129/71; PULSE 77; RESP 18; TEMP 36.7; O2SAT 94
--- NOTE | 2018-06-22 09:30 | PT.IIE ---
Current Diagnoses Other cervical disc displacement, unspecified cervical region (06/21/18) Surgery Performed Operation Date: 06/21/18 12:45 Actual Procedures p C7-T1 Anterior cervical discectomy & fusion w/bone graft instru. - Hunter Pinon MD Surgical History (Last Updated 06/17/18 @ 14:01 by Elizabeth Bauer, RN) Hx of cholecystectomy (Acute ~1982) S/P cervical spinal fusion (Acute ~2007) Status post cataract extraction of both eyes with insertion of intraocular lens (Acute) Medical History (Last Updated 06/17/18 @ 15:17 by Elizabeth Bauer RN) Anxiety (Acute) Arthritis (Acute) Asthma (Acute) CVA (cerebral vascular accident) (Acute) Diabetes (Acute) Easy bruisability (Acute) Edema (Acute) Fibromyalgia (Acute) GERD (gastroesophageal reflux disease) (Acute) Gout (Acute) H/O: hysterectomy (Acute ~1985) HTN (hypertension) (Acute) Hyperlipidemia (Acute) Hypothyroidism (Acute) Myocardial infarction (Acute ~06/2013) Numbness and tingling in left arm (Acute) Numbness and tingling in left hand (Acute) AARON on CPAP (Acute) Panic attacks (Acute) Pneumonia (Acute) Rheumatoid arthritis (Acute) Physical Therapy Inpatient Evaluation/Re-Eval M1 PT/OT-IP Prior Functional Status Start: 06/22/18 09:48 Freq: NEEDED Status: Active Protocol: Document 06/22/18 09:30 [facility] (Rec: 06/22/18 10:00 [facility] [id number]) Medical Review Prior Functional Status Medical History Reviewed Yes Mobility and Gait mod. indep. with 4WW Prior Functional Level (Other details) PA-C reports that Dr. Casanova notified her that she has radiculopathy down the LLE Social History Household Members children Living Arrangements House Number of Floors (Floors) One Floor Number of Stairs To Enter/Railing? ramped entry Home Equipment Four Wheel Walker Additional Social History Comment grand-daughter, Alfonso, will assist upon d/c (she has work scheduled for Sunday but trying to get that day off). M1 PT/OT-IP Prior Functional Status Start: 06/22/18 11:03 Freq: NEEDED Status: Active Protocol: Document 06/22/18 11:03 [facility] (Rec: 06/22/18 11:23 [facility] [id number]) Medical Review Prior Functional Status Medical History Reviewed Yes Communication At times per pt has difficulty getting the words out. Mobility and Gait mod. indep. with 4WW Activities of Daily Living and IADL's Pt states able to do all ADl's at home. Granddaughter assist with bills, medications, and pt does not drive. Prior Functional Level (Other details) BERT reports that Dr. Casanova notified her that she has radiculopathy down the LLE Social History Household Members family children Living Arrangements House Number of Stairs To Enter/Railing? ramp Home Environment Standard Height Toilet Tub/Shower Home Equipment Front Wheel Walker Shower Seat without Backrest Grab Bars In Shower Additional Social History Comment Granddaughter lives with pt and to assist for pt's needs. M2 PT-IP Current Condition Start: 06/22/18 09:48 Freq: NEEDED Status: Active Protocol: Document 06/22/18 09:30 [facility] (Rec: 06/22/18 10:00 [facility] [id number]) Physical Therapy Current Condition Current Condition Evaluation Date 06/22/18 Treatment Diagnosis C7-T1 ACDF, impaired mobility Onset Date 06/21/18 Precautions Cervical Spine Precautions Soft Collar for Comfort No Heavy Lifting Log Roll Brace soft collar Other Precautions h/o CVA with R side affected M3 PT-IP Subjective Start: 06/22/18 09:48 Freq: NEEDED Status: Active Protocol: Document 06/22/18 09:30 [facility] (Rec: 06/22/18 10:00 [facility] [id number]) Subjective Physical Therapy Visit Type Type Initial Evaluation Visit Start Time 09:15 Visit Stop Time 09:30 Total Visit Minutes 15 Notes Grand-daughter and OT in room during this session 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 Patient Goals improve pain Therapy Pain Assessment Location Left Hip Scale Used does not rate M4 PT-IP Mobility and Gait Start: 06/22/18 09:48 Freq: NEEDED Status: Active Protocol: Document 06/22/18 09:30 [facility] (Rec: 06/22/18 10:00 [facility] [id number]) PT-Bed Mobility Assessment Rolling Type of Rolling Roll to Right Level of Assist Standby Assistance Supine to Sit Supine to Sit Standby Assistance Bedrails Scooting Scooting to Edge of Bed Contact Guard Assistance PT-Transfer Assessment Sit to and From Stand Sit to and from Stand Standby Assistance 1 Person Assistance Use of Upper Extremities Equipment Transfer Assistive Device Gait Belt 4 Wheeled Walker Transfers Transfer Destination Chair Transfer Technique Stand Step Pivot Transfer Ability Level of Assist Contact Guard Assistance Comments Mobility Comments increased time required for bed mobility, increased pain in WB on the LLE. Gait Assessment Gait Gait Assistance Required: Contact Guard Assist Distance (Feet) 5 Assistive Devices Assistive Device Gait Belt 4 Wheeled Walker Orthotic/Prosthetic Devices or Brace: Yes Gait Deviations General Gait Pattern Antalgic Decreased Stride Length Decreased Feet Clearance Step-to Gait Factors Limiting Gait Function Factors Limiting Gait Function Decreased Activity Tolerance Decreased Strength Pain Poor Balance Comments Gait Comments Increased pain in LLE with WB, limited gait initially due to pain. PT-Balance Assessment Sitting Balance and Reactions Static Sitting Balance Ability Good Dynamic Sitting Balance Ability Fair Standing Balance and Reactions Static Standing Balance Ability Fair Dynamic Standing Balance Ability Fair Device Used 4WW M5 PT-IP Objective Assessments Start: 06/22/18 09:48 Freq: NEEDED Status: Active Protocol: Document 06/22/18 09:30 [facility] (Rec: 06/22/18 10:00 [facility] [id number]) Orientation Orientation/Cognition Level of Alertness Alert Strength Lower Extremity Strength Hip flexion 3+/5 R, 3/5 L (pain) Knee flexion 3+/5 B, extension 3+/5 B Ankle DF 4/5 B Comments Strength Comments pain limiting the LLE strength M6 PT-IP Treatment Start: 06/22/18 09:48 Freq: NEEDED Status: Active Protocol: Document 06/22/18 09:30 [facility] (Rec: 06/22/18 10:00 [facility] [id number]) Physical Therapy Treatment Education Education Provided Safety Other Treatments Other Treatment Performed PT and OT provided post- cervical guidelines M7 PT-IP Assessment and Plan Start: 06/22/18 09:48 Freq: NEEDED Status: Active Protocol: Document 06/22/18 09:30 [facility] (Rec: 06/22/18 10:00 [facility] [id number]) PT Summary Assessment and Plan Potential Rehabilitation Potential Good Status of Condition at Evaluation Stable Summary Impairments Pain Strength Balance Bed Mobility Transfers Gait Activity Tolerance Assessment Summary POD #1 C7-T1 ACDF. Pt with difficulty with mobility this morning due to pain in the LLE , she attributes to the bone graft but the PA-C notes that she has a h/o of radiculopathy that is the likely cause of this. She required a significant amount of time to get out of the bed due to pain , along with mild c/o dizziness throughout (see OT note for BP). Pt will require at least one more session with PT this date to determine safety of return home today. She has a supportive family member that will assist her upon d/c. If pt can progress her gait tolerance safely, likely be able to d/c home today. Goals Bed Mobility Goal Standby Assistance Transfer Goal Standby Assistance Gait Goal Standby Assistance Gait Distance 100 Days to Meet Goals 2 Frequency of Treatment Frequency Of Treatment Twice a Day Treatment Plan Physical Therapy Treatment Plan Bed Mobility Training Transfer Training Gait Training Balance Retraining Discharge Planning Hot or Cold Pack Neuromuscular Re-ed Recommendations To Nursing Amount of Assist Needed 1 Person Assist Discharge Recommendations PT Discharge Recommendations Home with Assistance
--- NOTE | 2018-06-22 09:30 | PT.IIE ---
Current Diagnoses Other cervical disc displacement, unspecified cervical region (06/21/18) Surgery Performed Operation Date: 06/21/18 12:45 Actual Procedures p C7-T1 Anterior cervical discectomy & fusion w/bone graft instru. - Hunter Pinon MD Surgical History (Last Updated 06/17/18 @ 14:01 by Elizabeth Bauer, RN) Hx of cholecystectomy (Acute ~1982) S/P cervical spinal fusion (Acute ~2007) Status post cataract extraction of both eyes with insertion of intraocular lens (Acute) Medical History (Last Updated 06/17/18 @ 15:17 by Elizabeth Bauer RN) Anxiety (Acute) Arthritis (Acute) Asthma (Acute) CVA (cerebral vascular accident) (Acute) Diabetes (Acute) Easy bruisability (Acute) Edema (Acute) Fibromyalgia (Acute) GERD (gastroesophageal reflux disease) (Acute) Gout (Acute) H/O: hysterectomy (Acute ~1985) HTN (hypertension) (Acute) Hyperlipidemia (Acute) Hypothyroidism (Acute) Myocardial infarction (Acute ~06/2013) Numbness and tingling in left arm (Acute) Numbness and tingling in left hand (Acute) AARON on CPAP (Acute) Panic attacks (Acute) Pneumonia (Acute) Rheumatoid arthritis (Acute) Physical Therapy Inpatient Evaluation/Re-Eval M1 PT/OT-IP Prior Functional Status Start: 06/22/18 09:48 Freq: NEEDED Status: Active Protocol: Document 06/22/18 09:30 [facility] (Rec: 06/22/18 10:00 [facility] [id number]) Medical Review Prior Functional Status Medical History Reviewed Yes Mobility and Gait mod. indep. with 4WW Prior Functional Level (Other details) PA-C reports that Dr. Casanova notified her that she has radiculopathy down the LLE Social History Household Members children Living Arrangements House Number of Floors (Floors) One Floor Number of Stairs To Enter/Railing? ramped entry Home Equipment Four Wheel Walker Additional Social History Comment grand-daughter, Alfonso, will assist upon d/c (she has work scheduled for Sunday but trying to get that day off). M2 PT-IP Current Condition Start: 06/22/18 09:48 Freq: NEEDED Status: Active Protocol: Document 06/22/18 09:30 [facility] (Rec: 06/22/18 10:00 [facility] [id number]) Physical Therapy Current Condition Current Condition Evaluation Date 06/22/18 Treatment Diagnosis C7-T1 ACDF, impaired mobility Onset Date 06/21/18 Precautions Anterior Hip Precautions No Hip Extension No Hip External Rotation Brace soft collar Other Precautions h/o CVA with R side affected M3 PT-IP Subjective Start: 06/22/18 09:48 Freq: NEEDED Status: Active Protocol: Document 06/22/18 09:30 [facility] (Rec: 06/22/18 10:00 [facility] [id number]) Subjective Physical Therapy Visit Type Type Initial Evaluation Visit Start Time 09:15 Visit Stop Time 09:30 Total Visit Minutes 15 Notes Grand-daughter and OT in room during this session Number of ELECTRICAL LINEWORKER Visits 0 Physical Therapy Visit Comments Patient Comments pt states she is having pain in the L leg/hip. Patient Goals improve pain Therapy Pain Assessment Location Left Hip Scale Used does not rate M4 PT-IP Mobility and Gait Start: 06/22/18 09:48 Freq: NEEDED Status: Active Protocol: Document 06/22/18 09:30 [facility] (Rec: 06/22/18 10:00 [facility] [id number]) PT-Bed Mobility Assessment Rolling Type of Rolling Roll to Right Level of Assist Standby Assistance Supine to Sit Supine to Sit Standby Assistance Bedrails Scooting Scooting to Edge of Bed Contact Guard Assistance PT-Transfer Assessment Sit to and From Stand Sit to and from Stand Standby Assistance 1 Person Assistance Use of Upper Extremities Equipment Transfer Assistive Device Gait Belt 4 Wheeled Walker Transfers Transfer Destination Chair Transfer Technique Stand Step Pivot Transfer Ability Level of Assist Contact Guard Assistance Comments Mobility Comments increased time required for bed mobility, increased pain in WB on the LLE. Gait Assessment Gait Gait Assistance Required: Contact Guard Assist Distance (Feet) 5 Assistive Devices Assistive Device Gait Belt 4 Wheeled Walker Orthotic/Prosthetic Devices or Brace: Yes Gait Deviations General Gait Pattern Antalgic Decreased Stride Length Decreased Feet Clearance Step-to Gait Factors Limiting Gait Function Factors Limiting Gait Function Decreased Activity Tolerance Decreased Strength Pain Poor Balance Comments Gait Comments Increased pain in LLE with WB, limited gait initially due to pain. PT-Balance Assessment Sitting Balance and Reactions Static Sitting Balance Ability Good Dynamic Sitting Balance Ability Fair Standing Balance and Reactions Static Standing Balance Ability Fair Dynamic Standing Balance Ability Fair Device Used 4WW M5 PT-IP Objective Assessments Start: 06/22/18 09:48 Freq: NEEDED Status: Active Protocol: Document 06/22/18 09:30 [facility] (Rec: 06/22/18 10:00 [facility] [id number]) Orientation Orientation/Cognition Level of Alertness Alert Strength Lower Extremity Strength Hip flexion 3+/5 R, 3/5 L (pain) Knee flexion 3+/5 B, extension 3+/5 B Ankle DF 4/5 B Comments Strength Comments pain limiting the LLE strength M6 PT-IP Treatment Start: 06/22/18 09:48 Freq: NEEDED Status: Active Protocol: Document 06/22/18 09:30 [facility] (Rec: 06/22/18 10:00 [facility] [id number]) Physical Therapy Treatment Education Education Provided Safety Other Treatments Other Treatment Performed PT and OT provided post- cervical guidelines M7 PT-IP Assessment and Plan Start: 06/22/18 09:48 Freq: NEEDED Status: Active Protocol: Document 06/22/18 09:30 [facility] (Rec: 06/22/18 10:00 [facility] [id number]) PT Summary Assessment and Plan Potential Rehabilitation Potential Good Status of Condition at Evaluation Stable Summary Impairments Pain Strength Balance Bed Mobility Transfers Gait Activity Tolerance Assessment Summary POD #1 C7-T1 ACDF. Pt with difficulty with mobility this morning due to pain in the LLE , she attributes to the bone graft but the PA-C notes that she has a h/o of radiculopathy that is the likely cause of this. She required a significant amount of time to get out of the bed due to pain , along with mild c/o dizziness throughout (see OT note for BP). Pt will require at least one more session with PT this date to determine safety of return home today. She has a supportive family member that will assist her upon d/c. If pt can progress her gait tolerance safely, likely be able to d/c home today. Goals Bed Mobility Goal Standby Assistance Transfer Goal Standby Assistance Gait Goal Standby Assistance Gait Distance 100 Days to Meet Goals 2 Frequency of Treatment Frequency Of Treatment Twice a Day Treatment Plan Physical Therapy Treatment Plan Bed Mobility Training Transfer Training Gait Training Balance Retraining Discharge Planning Hot or Cold Pack Neuromuscular Re-ed Recommendations To Nursing Amount of Assist Needed 1 Person Assist Discharge Recommendations PT Discharge Recommendations Home with Assistance
[2018-06-22] MEDS: CELECOXIB 200 MG CAPSULE PO (10:56)
[2018-06-22] MEDS: GLIMEPIRIDE 2 MG TABLET PO (10:56)
[2018-06-22] MEDS: CYANOCOBALAMIN (VITAMIN B-12) 500 MCG TABLET 2000 MCG PO (10:56)
[2018-06-22] MEDS: DOCUSATE 100 MG CAPSULE PO (10:56)
[2018-06-22] MEDS: CHOLECALCIFEROL (VITAMIN D3) 5,000 UNIT TABLET 5000 UNIT PO (10:57)
[2018-06-22] MEDS: ASPIRIN EC 81 MG TABLET PO (10:57)
[2018-06-22] MEDS: METFORMIN HCL 500 MG TABLET 1500 MG PO (10:58)
[2018-06-22] MEDS: ACETAMINOPHEN 325 MG TABLET PO (11:16)
--- NOTE | 2018-06-22 11:23 | OT.IP.EVAL ---
Current Diagnoses Other cervical disc displacement, unspecified cervical region (06/21/18) Surgery Performed Operation Date: 06/21/18 12:45 Actual Procedures p C7-T1 Anterior cervical discectomy & fusion w/bone graft instru. - Hunter Pinon MD Past Medical History (Last Updated 06/17/18 @ 15:17 by Elizabeth Bauer RN) Anxiety (Acute) Arthritis (Acute) Asthma (Acute) CVA (cerebral vascular accident) (Acute) Diabetes (Acute) Easy bruisability (Acute) Edema (Acute) Fibromyalgia (Acute) GERD (gastroesophageal reflux disease) (Acute) Gout (Acute) H/O: hysterectomy (Acute ~1985) HTN (hypertension) (Acute) Hyperlipidemia (Acute) Hypothyroidism (Acute) Myocardial infarction (Acute ~06/2013) Numbness and tingling in left arm (Acute) Numbness and tingling in left hand (Acute) AARON on CPAP (Acute) Panic attacks (Acute) Pneumonia (Acute) Rheumatoid arthritis (Acute) Surgical History (Last Updated 06/17/18 @ 14:01 by Elizabeth Bauer RN) Hx of cholecystectomy (Acute ~1982) S/P cervical spinal fusion (Acute ~2007) Status post cataract extraction of both eyes with insertion of intraocular lens (Acute) Occupational Therapy Inpatient Evaluation/Re-Eval M1 PT/OT-IP Prior Functional Status Start: 06/22/18 09:48 Freq: NEEDED Status: Active Protocol: Document 06/22/18 09:30 [facility] (Rec: 06/22/18 10:00 [facility] [id number]) Medical Review Prior Functional Status Medical History Reviewed Yes Mobility and Gait mod. indep. with 4WW Prior Functional Level (Other details) PA-C reports that Dr. Casanova notified her that she has radiculopathy down the LLE Social History Household Members children Living Arrangements House Number of Floors (Floors) One Floor Number of Stairs To Enter/Railing? ramped entry Home Equipment Four Wheel Walker Additional Social History Comment grand-daughter, Alfonso, will assist upon d/c (she has work scheduled for Sunday but trying to get that day off). M1 PT/OT-IP Prior Functional Status Start: 06/22/18 11:03 Freq: NEEDED Status: Active Protocol: Document 06/22/18 11:03 [facility] (Rec: 06/22/18 11:23 [facility] [id number]) Medical Review Prior Functional Status Medical History Reviewed Yes Communication At times per pt has difficulty getting the words out. Mobility and Gait mod. indep. with 4WW Activities of Daily Living and IADL's Pt states able to do all ADl's at home. Granddaughter assist with bills, medications, and pt does not drive. Prior Functional Level (Other details) BERT reports that Dr. Casanova notified her that she has radiculopathy down the LLE Social History Household Members family children Living Arrangements House Number of Stairs To Enter/Railing? ramp Home Environment Standard Height Toilet Tub/Shower Home Equipment Front Wheel Walker Shower Seat without Backrest Grab Bars In Shower Additional Social History Comment Granddaughter lives with pt and to assist for pt's needs. M2 OT-IP Current Condition Start: 06/22/18 11:03 Freq: Status: Active Protocol: Document 06/22/18 11:03 [facility] (Rec: 06/22/18 11:23 [facility] [id number]) Occupational Therapy Current Condition Current Condition Evaluation Date 06/22/18 Treatment Diagnosis Cervical Disc herniation Diagnosis Onset Date 06/21/18 Post Operative Precautions Cervical Spine Precautions Soft Collar for Comfort Soft Collar at all Times No Heavy Lifting Log Roll Other Precautions h/o CVA with R side affected M3 OT- IP Subjective and Pain Start: 06/22/18 11:03 Freq: Status: Active Protocol: Document 06/22/18 11:03 [facility] (Rec: 06/22/18 11:23 [facility] [id number]) OT- Subjective Occupational Therapy Visit Type Type Initial Evaluation Visit Start Time 08:40 Visit Stop Time 09:50 Total Visit Minutes 70 Occupational Therapy Visit Comments Patient/Caregiver Goals Pt wanting to go home this afternoon if feeling better. OT Pain Assessment Pain When Pain Assessed At Rest Pain Present Pain Present Pain Reported M4 OT- IP ADL's Start: 06/22/18 11:03 Freq: Status: Active Protocol: Document 06/22/18 11:03 [facility] (Rec: 06/22/18 11:23 [facility] [id number]) OT [id number] Comments OT Self-Feeding Comments Educated to alternate between solids and liquids, to eat softer foods, and eat upright. OT ADL-Grooming General Evaluation Grooming Ability Minimal Assistance Areas Needing Assistance Retrieving/Set-up of Grooming Items Comments OT Grooming Comments Pt needing assist to comb her hair, having to sit on 4ww to brush her teeth and wash her hands and face. OT ADL-Oral Care General Eval Oral Care Ability Independent OT ADL-Dressing General Eval Upper Body Dressing Ability Independent Lower Body Dressing Ability Standby Assistance Comments OT Dressing Comments VC to dress her left leg first as weaker and educated to use paper machine tender if needed or granddaughter to assist. Able to educate pt and granddaughter to fanny/doff soft collar. OT ADL-Toileting General Evaluation Toileting Ability Standby Assistance Devices Toileting Assistive Devices Grab Bars Comments OT Toileting Comments SBA for all toileting needs with 4WW. M6 OT- IP Functional Cognition Start: 06/22/18 11:03 Freq: Status: Active Protocol: Document 06/22/18 11:03 [facility] (Rec: 06/22/18 11:23 [facility] [id number]) Cognitive Factors Limiting Selfcare Function Cognitive Ability Level of Alertness Alert Patient Orientation Name Place Situation Attention Span Ability Capable of Focused Attention Capable of Sustained Attention Ability to Follow Commands Able to Follow One Step Commands Memory Description Short Term Impaired Working Impaired Safety Awareness Underestimates Need for Assistance Problem Solving Ability Needs Assist to Identify Solutions Cognitive Comments Cognitive Assessment Comments Pt having occasional word finding difficulty. VC to back up all the way to the recliner before sitting down. OT- Vision and Hearing OT- Hearing Assessment OT- Hearing Assessment WFL M7 OT- IP Mobility and Balance Start: 06/22/18 11:03 Freq: Status: Active Protocol: Document 06/22/18 11:03 [facility] (Rec: 06/22/18 11:23 [facility] [id number]) OT- Bed Mobility Assessment Rolling Type of Rolling Roll to Right Level of Assistance Standby Assistance Bedrails Supine to Sit Supine to Sit Assist Standby Assistance Scooting Scooting to Edge of Bed Contact Guard Assistance OT-Transfer Assessment Sit to and From Stand Sit to and from Stand Standby Assistance Contact Guard Assistance Transfers Transfer Ability Standby Assistance Contact Guard Assistance Technique Transfer Destination Bed Chair Toilet Transfer Technique Stand Step Pivot Devices Transfer Assistive Devices Gait Belt 4 Wheeled Walker Comments Mobility Comments Pt difficulty walking with 4WW due to pain for incision site on left hip and also from radiculopathy. Pt neding occasional CGA for balance. BP supine 140/69 , 125/75 sitting, 114/71 after standing , and 123/45 in recliner. O2 level from 89-97%. Pt educated to take deep breaths and able to increase o2 above 95% quickly. OT- Balance Assessment Sitting Balance and Reactions Static Sitting Balance Ability Normal Dynamic Sitting Balance Ability Good Standing Balance and Reactions Static Standing Balance Ability Fair Dynamic Standing Balance Ability Poor M8 OT- IP Objective Assessments Start: 06/22/18 11:03 Freq: Status: Active Protocol: Document 06/22/18 11:03 [facility] (Rec: 06/22/18 11:23 [facility] [id number]) OT Gross Range of Motion Upper Extremity Range of Motion Assessment Within Functional Limits OT Sensation Assessment Comments Summary Comments Intact for all except for left shoulder, pt noted decreased sensation. Edema Edema Present Edema Comments Mild swelling both hands. M9 OT- IP Assessment and Plan Start: 06/22/18 11:03 Freq: Status: Active Protocol: Document 06/22/18 11:03 [facility] (Rec: 06/22/18 11:23 [facility] [id number]) OT Summary Assessment and Plan Potential Rehabilitation Potential Excellent Analytic Complexity at Evaluation Low Summary OT Impairments Pain Balance Coordination Functional Cognition Functional Mobility Dressing Bathing Progress Towards Goals Slow Progress due to Pain Assessment Summary Pt low complexity and main barrier is pain, decrease BP and O2 when up. Pt will need assist for ADl's and functional mobilty especially for showers, uneven terrain, and granddaughter will be able to provide 24/7 assist. Therefore pt to go home with granddaughter when medically stable. Goals Dressing Goal Independent Toileting Goal Independent Bathing Goal Standby Assistance Toilet Transfer Goal Independent Shower Transfer Goal Standby Assistance Patient/Caregiver Education Goal Caregiver Independent Assisting Patient Days to Meet Goals 2 Frequency of Treatment Frequency Of Treatment Once a Day Treatment Plan OT Treatment Plan ADL Training Functional Cognition Training Functional Mobility Patient/Family Education Discharge Planning Other Treatment Recommendations and Next Family training/shower. Treatment Focus Discharge Recommendations OT Discharge Recommendations Home with 24/7 Assist
[2018-06-22 11:35] VITALS: BP 130/67; PULSE 77; RESP 18; TEMP 36.9; O2SAT 95
[2018-06-22] MEDS: INSULIN ASPART 100 UNIT/ML INSULN PEN SUBCUT (12:22)
--- NOTE | 2018-06-22 14:35 | PT.IPTN ---
Current Diagnoses Other cervical disc displacement, unspecified cervical region (06/21/18) Surgery Performed Operation Date: 06/21/18 12:45 Actual Procedures p C7-T1 Anterior cervical discectomy & fusion w/bone graft instru. - Hunter Pinon MD Physical Therapy Treatment Note M2 PT-IP Current Condition Start: 06/22/18 09:48 Freq: NEEDED Status: Active Protocol: Document 06/22/18 14:35 [facility] (Rec: 06/22/18 14:52 [facility] [id number]) Physical Therapy Current Condition Current Condition Evaluation Date 06/22/18 Treatment Diagnosis C7-T1 ACDF, impaired mobility Onset Date 06/21/18 Precautions Cervical Spine Precautions Soft Collar for Comfort Soft Collar at all Times No Heavy Lifting Log Roll Other Precautions h/o CVA with R side affected M3 PT-IP Subjective Start: 06/22/18 09:48 Freq: NEEDED Status: Active Protocol: Document 06/22/18 14:35 [facility] (Rec: 06/22/18 14:52 [facility] [email or web address]) Subjective Physical Therapy Visit Type Type Treatment Note Visit Start Time 14:15 Visit Stop Time 14:35 Total Visit Minutes 20 Number of CORPORATE OFFICER Visits 0 Physical Therapy Visit Comments Patient Comments pt wants to go home. M4 PT-IP Mobility and Gait Start: 06/22/18 09:48 Freq: NEEDED Status: Active Protocol: Document 06/22/18 14:35 [facility] (Rec: 06/22/18 14:52 [facility] [id number]) PT-Transfer Assessment Sit to and From Stand Sit to and from Stand Independent Equipment Transfer Assistive Device Gait Belt 4 Wheeled Walker Transfers Transfer Destination Chair Transfer Technique Stand Step Pivot Transfer Ability Level of Assist Standby Assistance Gait Assessment Gait Gait Assistance Required: Standby Assistance Distance (Feet) 100 Assistive Devices Assistive Device Gait Belt 4 Wheeled Walker Gait Deviations General Gait Pattern Antalgic Decreased Feet Clearance Factors Limiting Gait Function Factors Limiting Gait Function Decreased Activity Tolerance Comments Gait Comments O2 saturation 94-98% on RA, HR 80-100 bpm during session. BP WNL, no dizziness or lightheadedness. M5 PT-IP Objective Assessments Start: 06/22/18 09:48 Freq: NEEDED Status: Active Protocol: Document 06/22/18 09:30 [facility] (Rec: 06/22/18 10:00 [facility] [id number]) Orientation Orientation/Cognition Level of Alertness Alert Strength Lower Extremity Strength Hip flexion 3+/5 R, 3/5 L (pain) Knee flexion 3+/5 B, extension 3+/5 B Ankle DF 4/5 B Comments Strength Comments pain limiting the LLE strength M6 PT-IP Treatment Start: 06/22/18 09:48 Freq: NEEDED Status: Active Protocol: Document 06/22/18 09:30 [facility] (Rec: 06/22/18 10:00 [facility] [id number]) Physical Therapy Treatment Education Education Provided Safety Other Treatments Other Treatment Performed PT and OT provided post- cervical guidelines M7 PT-IP Assessment and Plan Start: 06/22/18 09:48 Freq: NEEDED Status: Active Protocol: Document 06/22/18 14:35 [facility] (Rec: 06/22/18 14:52 [facility] [id number]) PT Summary Assessment and Plan Summary Progress Towards Goals Safe For Discharge Goals Met Assessment Summary POD #1 C7-T1 ACDF. Pt able to ambulate 100 ft with her 4WW with antalgic, but safe gait pattern. Gait became less antalgic after ambulating for a brief period. Grand-daughter and friend in room at this time to observe. Pt is cleared to d/c home when medically stable. Goals Bed Mobility Goal Standby Assistance Transfer Goal Standby Assistance Gait Goal Standby Assistance Gait Distance 100 Days to Meet Goals 2 Treatment Plan Other Recommendations and Next Treatment discharge Focus Recommendations To Nursing Amount of Assist Needed 1 Person Assist Discharge Recommendations PT Discharge Recommendations Home with Assistance
== END 2018-06-22 16:00 | disposition home or self-care (01) | DRG 472 ==
PROVIDERS: Admitting Provider Orthopaedic Surgery; Family Provider Family Medicine; PCP Family Medicine; Visit Provider Orthopaedic Surgery
PROC: 0RG40A0 Fusion of Cervicothoracic Vertebral Joint with Interbody Fusion Device, Anterior Approach, Anterior Column, Open Approach (ICD-10-PCS; principal; 2018-06-21 12:45)
DX: M50.23 Other cervical disc displacement, cervicothoracic region (principal); I69.351 Hemiplegia and hemiparesis following cerebral infarction affecting right dominant side; G47.33 Obstructive sleep apnea (adult) (pediatric); E03.9 Hypothyroidism, unspecified; I10 Essential (primary) hypertension; K21.9 Gastro-esophageal reflux disease without esophagitis; E11.9 Type 2 diabetes mellitus without complications; Z79.84 Long term (current) use of oral hypoglycemic drugs
CPT/HCPCS: 72040; 76001; 82962; 94760; 97116; 97161; 97165; 97530; 97535; C1776; J0690; J2405; J2704; J3010

== ENCOUNTER → 2018-07-11 10:13 | Outpatient (CLI) | payer MEDICARE, OTHER, SELFPAY ==
[2018-06-21 16:49] VITALS: BMI 26.3
[2018-07-11 11:01] LABS: Hemoglobin A1C% w Est Avg Glu 6.6 % (4.0-6.0)
[2018-07-11 11:04] LABS: Creatinine Urine Random 46.5 mg/dL
[2018-07-11 11:37] LABS: Microalbumi Creatinin Ratio Ur 12.9 ug/mg CR (<30); Microalbumin Urine Random < 0.6 mg/dL (0-1.6)
[2018-07-11 11:38] LABS: Thyroid Stimulating Hormone 0.15 uIU/mL (0.47-4.68)
== END ==
PROVIDERS: PCP Family Medicine; Visit Provider Family Medicine
DX: E11.9 Type 2 diabetes mellitus without complications (principal); E05.90 Thyrotoxicosis, unspecified without thyrotoxic crisis or storm
CPT/HCPCS: 36415; 82043; 82570; 83036; 84443

== ENCOUNTER → 2018-10-14 08:45 | Outpatient (CLI) | payer MEDICARE, OTHER, SELFPAY ==
[2018-06-21 16:49] VITALS: BMI 26.3
[2018-10-14 09:41] LABS: Blood Urea Nitrogen 16 mg/dL (7-17); Calcium 9.2 mg/dL (8.4-10.2); Carbon Dioxide 26 mmol/L (22-32); Chloride 99 mmol/L (98-107); Estimated Glomerular Filt Rate > 60.0 mL/min (>60); Glucose 166 mg/dL (80-110); HEMOLYSIS < 15 (0-50); Potassium 4.3 mmol/L (3.4-5.1); Sodium 136 mmol/L (137-145)
[2018-10-14 10:31] LABS: Thyroid Stimulating Hormone 0.98 uIU/mL (0.47-4.68)
== END ==
PROVIDERS: Family Provider Family Medicine; PCP Family Medicine; Visit Provider Family Medicine
DX: E11.9 Type 2 diabetes mellitus without complications (principal)
CPT/HCPCS: 36415; 80048; 83036; 84443

== ENCOUNTER → 2019-01-16 10:04 | Outpatient (CLI) | payer MEDICARE, OTHER, SELFPAY ==
[2018-06-21 16:49] VITALS: BMI 26.3
--- NOTE | 2019-01-16 10:06 | DI.US.S_ITS ---
PROCEDURE: US THYROID INDICATIONS: THYROIDITIS TECHNIQUE: Real-time scanning was performed of the thyroid gland, with image documentation. COMPARISON: None. FINDINGS: Right: Thyroid lobe measures 4.9 x 1.5 x 1.7 cm, and is homogeneous in echotexture. Left: Thyroid lobe measures 4.0 x 0.9 x 1.6 cm, and is homogenous in echotexture. Isthmus: 2.2 mm thick. Nodule number: 1 Location: Right inferior Size: 0.6 x 0.3 x 0.5 cm. Composition: Predominantly solid Echogenicity: Hypoechoic Shape: wider than tall. Margins: Smooth Echogenic foci: None Total points: 4 ACR TI-RADS category: Moderately suspicious IMPRESSION: Small moderately suspicious right thyroid nodule. Recommend continued followup ultrasound as detailed below. ACR TI-RADS definitions and recommendations: TI-RADS 1 (benign): 0 points. FNA not needed. TI-RADS 2 (not suspicious): 2 points. FNA not needed. TI-RADS 3 (mildly suspicious): 3 points. * FNA if 2.5 cm or larger, follow up if 1.5 cm or larger (at 1, 3, and 5 years). TI-RADS 4 (moderately suspicious): 4-6 points. * FNA if 1.5 cm or larger, follow up if 1 cm or larger (at 1, 2, 3, and 5 years). TI-RADS 5 (highly suspicious): 7 points or more. * FNA if 1 cm or larger, follow up if 0.5 cm or larger (every year for 5 years). Dictated by: Vladimir SINGH Interpreted: Annalisa Villanueva MD on 01/16/2019 at 11:12 Approved by: Annalisa Villanueva M.D. on 01/16/2019 at 14:46
[2019-01-16 11:35] LABS: Hemoglobin A1C% w Est Avg Glu 6.9 % (4.0-6.0)
[2019-01-16 11:55] LABS: BUN Creatinine Ratio 16.3 (6-22); Blood Urea Nitrogen 13 mg/dL (7-17); Calcium 9.3 mg/dL (8.4-10.2); Carbon Dioxide 32 mmol/L (22-32); Chloride 96 mmol/L (98-107); Cholesterol 111 mg/dL (140-199); Estimated Glomerular Filt Rate > 60.0 mL/min (>60); Glucose 120 mg/dL (80-110); HDL Cholesterol 38 mg/dL (40-60); HEMOLYSIS < 15 (0-50); LDL Cholesterol Calculated 32 mg/dL (<100); Potassium 4.4 mmol/L (3.4-5.1); Sodium 137 mmol/L (137-145); Triglycerides 207 mg/dL (35-150)
[2019-01-16 12:10] LABS: Free T3, Triiodothyronine Free 2.66 pg/mL (2.77-5.27)
[2019-01-16 12:24] LABS: Thyroid Stimulating Hormone 0.73 uIU/mL (0.47-4.68)
== END ==
PROVIDERS: PCP Family Medicine; Visit Provider Family Medicine
DX: E06.9 Thyroiditis, unspecified (principal); E04.1 Nontoxic single thyroid nodule; E05.90 Thyrotoxicosis, unspecified without thyrotoxic crisis or storm; E11.9 Type 2 diabetes mellitus without complications
CPT/HCPCS: 36415; 76536; 80048; 80061; 83036; 84439; 84443; 84481

== ENCOUNTER → 2019-01-23 14:55 | Outpatient (CLI) | payer MEDICARE, OTHER, SELFPAY ==
[2018-06-21 16:49] VITALS: BMI 26.3
== END ==
PROVIDERS: PCP Family Medicine; Visit Provider Family Medicine
DX: R10.9 Unspecified abdominal pain (principal)
CPT/HCPCS: 87086

== ENCOUNTER → 2019-02-26 09:29 | Outpatient (CLI) | payer MEDICARE, OTHER, SELFPAY ==
[2018-06-21 16:49] VITALS: BMI 26.3
--- NOTE | 2019-02-26 09:30 | DI.NM.S_ITS ---
PROCEDURE: NM UPTAKE AND SCAN RADIOPHARMACEUTICAL: 370 ?Ci I-123 sodium iodide by mouth. INDICATIONS: thyroid nodule TECHNIQUE: I-123 sodium iodide was administered orally. Anterior neck images were obtained, and iodine uptake by the thyroid gland calculated using pre parole counseling aide's software. COMPARISON: [facility], , THYROID, 01/16/2019, 10:43. FINDINGS: Morphology: The thyroid gland has normal morphology and uniform activity. No 'cold' or 'hot' thyroid nodules are identified. Uptake: The 6 hour thyroid uptake is 8.1%; normal ranges are from 6-18%. 24 hour thyroid uptake is 21.3%; normal ranges are from 10-30%. IMPRESSION: Normal thyroid uptake and scan. The small right inferior thyroid nodule is likely below the resolution of this test. Continued ultrasound followup suggested. Dictated by: Tyrell Fletcher M.D. on 02/27/2019 at 12:08 Approved by: Tyrell Fletcher M.D. on 02/27/2019 at 12:11
== END ==
PROVIDERS: PCP Family Medicine; Visit Provider Family Medicine
DX: E04.1 Nontoxic single thyroid nodule (principal)
CPT/HCPCS: 78014; A9516

== ENCOUNTER → 2019-04-22 08:31 | Outpatient (CLI) | payer MEDICARE, OTHER, SELFPAY ==
[2018-06-21 16:49] VITALS: BMI 26.3
[2019-04-22 09:11] LABS: BUN Creatinine Ratio 21.1 (6-22); Blood Urea Nitrogen 19 mg/dL (7-17); Calcium 9.5 mg/dL (8.4-10.2); Carbon Dioxide 27 mmol/L (22-32); Chloride 100 mmol/L (98-107); Estimated Glomerular Filt Rate > 60.0 mL/min (>60); Glucose 175 mg/dL (80-110); HEMOLYSIS < 15 (0-50); Potassium 4.7 mmol/L (3.4-5.1); Sodium 138 mmol/L (137-145)
[2019-04-22 09:14] LABS: Hemoglobin A1C% w Est Avg Glu 6.6 % (4.0-6.0)
[2019-04-22 10:13] LABS: Thyroid Stimulating Hormone 0.07 uIU/mL (0.47-4.68)
== END ==
PROVIDERS: PCP Family Medicine; Visit Provider Family Medicine
DX: E11.9 Type 2 diabetes mellitus without complications (principal)
CPT/HCPCS: 36415; 80048; 83036; 84443

== ENCOUNTER → 2019-07-28 10:13 | Outpatient (CLI) | payer MEDICARE, OTHER, SELFPAY ==
[2018-06-21 16:49] VITALS: BMI 26.3
[2019-07-28 12:45] LABS: Hemoglobin A1C% w Est Avg Glu 6.7 % (4.0-6.0)
[2019-07-28 13:21] LABS: Thyroid Stimulating Hormone 0.69 uIU/mL (0.47-4.68)
== END ==
PROVIDERS: PCP Family Medicine; Visit Provider Family Medicine
DX: E05.90 Thyrotoxicosis, unspecified without thyrotoxic crisis or storm (principal); E11.9 Type 2 diabetes mellitus without complications
CPT/HCPCS: 36415; 83036; 84443

== ENCOUNTER → 2019-10-02 13:05 | Outpatient (CLI) | payer MEDICARE, OTHER, SELFPAY ==
[2018-06-21 16:49] VITALS: BMI 26.3
[2019-10-02 14:11] LABS: BUN Creatinine Ratio 22.2 (6-22); Blood Urea Nitrogen 20 mg/dL (7-17); Carbon Dioxide 27 mmol/L (22-32); Chloride 98 mmol/L (98-107); Estimated Glomerular Filt Rate > 60.0 mL/min (>60); Glucose 90 mg/dL (80-110); HEMOLYSIS < 15 (0-50); Potassium 4.7 mmol/L (3.4-5.1); Sodium 138 mmol/L (137-145)
[2019-10-02 15:58] LABS: Thyroid Stimulating Hormone 1.72 uIU/mL (0.47-4.68)
[2019-10-02 17:28] LABS: Hemoglobin A1C% w Est Avg Glu 6.9 % (4.0-6.0)
== END ==
PROVIDERS: PCP Family Medicine; Referring Provider Family Medicine; Visit Provider Family Medicine
DX: E11.9 Type 2 diabetes mellitus without complications (principal); E05.90 Thyrotoxicosis, unspecified without thyrotoxic crisis or storm
CPT/HCPCS: 36415; 80048; 83036; 84443

== ENCOUNTER → 2020-01-02 11:40 | Outpatient (CLI) | payer MEDICARE, OTHER, SELFPAY ==
[2018-06-21 16:49] VITALS: BMI 26.3
[2020-01-02 12:34] LABS: Hemoglobin A1C% w Est Avg Glu 7.1 % (4.0-6.0)
[2020-01-02 12:41] LABS: BUN Creatinine Ratio 14.9 (6-22); Blood Urea Nitrogen 14 mg/dL (7-17); Calcium 9.5 mg/dL (8.4-10.2); Carbon Dioxide 28 mmol/L (22-32); Chloride 99 mmol/L (98-107); Estimated Glomerular Filt Rate 58.5 mL/min (>60); Glucose 130 mg/dL (80-110); HEMOLYSIS < 15 (0-50); Potassium 4.1 mmol/L (3.4-5.1); Sodium 136 mmol/L (137-145)
[2020-01-02 13:49] LABS: Thyroid Stimulating Hormone 0.18 uIU/mL (0.47-4.68)
== END ==
PROVIDERS: PCP Family Medicine; Referring Provider Family Medicine; Visit Provider Family Medicine
DX: E11.9 Type 2 diabetes mellitus without complications (principal)
CPT/HCPCS: 36415; 80048; 83036; 84443

== ENCOUNTER → 2020-03-25 11:52 | Outpatient (CLI) | payer MEDICARE, OTHER, SELFPAY ==
[2018-06-21 16:49] VITALS: BMI 26.3
[2020-03-25 12:48] LABS: Hemoglobin A1C% w Est Avg Glu 6.8 % (4.0-6.0)
[2020-03-25 13:09] LABS: BUN Creatinine Ratio 22.1 (6-22); Blood Urea Nitrogen 21 mg/dL (7-17); Calcium 9.7 mg/dL (8.4-10.2); Carbon Dioxide 31 mmol/L (22-32); Chloride 92 mmol/L (98-107); Estimated Glomerular Filt Rate 57.8 mL/min (>60); Glucose 102 mg/dL (80-110); HEMOLYSIS < 15 (0-50); Potassium 4.6 mmol/L (3.4-5.1); Sodium 133 mmol/L (137-145)
[2020-03-25 13:36] LABS: Thyroid Stimulating Hormone 0.682 uIU/mL (0.47-4.68)
== END ==
PROVIDERS: PCP Family Medicine; Referring Provider Family Medicine; Visit Provider Family Medicine
DX: E11.9 Type 2 diabetes mellitus without complications (principal)
CPT/HCPCS: 36415; 80048; 83036; 84443

== ENCOUNTER → 2020-06-24 14:03 | Outpatient (CLI) | payer MEDICARE, OTHER, SELFPAY ==
[2018-06-21 16:49] VITALS: BMI 26.3
[2020-06-24 15:43] LABS: Hemoglobin A1C% w Est Avg Glu 7.3 % (4.0-6.0)
[2020-06-24 16:00] LABS: BUN Creatinine Ratio 22.7 (6-22); Blood Urea Nitrogen 20 mg/dL (7-17); Calcium 9.1 mg/dL (8.4-10.2); Carbon Dioxide 30 mmol/L (22-32); Chloride 99 mmol/L (98-107); Estimated Glomerular Filt Rate > 60.0 mL/min (>60); Glucose 111 mg/dL (80-110); HEMOLYSIS < 15 (0-50); Potassium 3.7 mmol/L (3.4-5.1); Sodium 133 mmol/L (137-145)
[2020-06-24 16:37] LABS: Thyroid Stimulating Hormone 7.67 uIU/mL (0.47-4.68)
== END ==
PROVIDERS: PCP Family Medicine; Referring Provider Family Medicine; Visit Provider Family Medicine
DX: E05.90 Thyrotoxicosis, unspecified without thyrotoxic crisis or storm (principal); E11.9 Type 2 diabetes mellitus without complications
CPT/HCPCS: 36415; 80048; 83036; 84443